=== PATIENT | female | born 1995 | race Caucasian/White ===

== ENCOUNTER 2024-08-09 10:00 | Outpatient (RCR) | payer OTHER | END 2024-08-10 | LOC: PT 10:00 | PROVIDERS: ATTEND Student in an Organized Health Care Education/Training Program | DX: M51.26 Other intervertebral disc displacement, lumbar region (principal) ==

== ENCOUNTER 2024-08-15 06:43 | Outpatient (RCR) | payer OTHER | END 2024-09-10 | LOC: PT 06:43 | PROVIDERS: ATTEND Student in an Organized Health Care Education/Training Program | DX: M51.26 Other intervertebral disc displacement, lumbar region (principal) ==